=== PATIENT | male | born 1990 | race Caucasian/White ===

== ENCOUNTER 2017-04-08 11:15 | Emergency (ER) | payer SELFPAY, OTHER, MEDICAID ==
[2017-04-08] MEDS: DIPHTH/TET/ACEL PERTUSS (ADULT) 0.5 ML VIAL IM* (12:43)
== END 2017-04-08 13:20 | disposition home or self-care (01) ==
LOC: FTE 11:15
DX: L05.02 Pilonidal sinus with abscess (principal); Z23 Encounter for immunization
CPT/HCPCS: 90471; 90715; 99284-25

== ENCOUNTER 2017-04-10 10:08 | Emergency (ER) | payer SELFPAY ==
[2017-04-10] MEDS: LIDOCAINE 1% (MDV) 20 ML INJ SC (11:31)
== END 2017-04-10 12:03 | disposition home or self-care (01) ==
LOC: FTE 10:08
DX: L05.01 Pilonidal cyst with abscess (principal)
CPT/HCPCS: 10080; 99283-25